=== PATIENT | female | born 1990 | race African-American/Black ===

== ENCOUNTER 2018-06-16 15:32 | Emergency (ER) | payer SELFPAY ==
[~2018-06-16] VITALS: Ht 167.6 cm; Wt 68.0 kg
[2018-06-16 16:03] VITALS: BP 141/82
--- NOTE | 2018-06-16 16:07 | Emergency Room Report ---
History of Present Illness General Chief Complaint: Pain Source: Patient Present Illness HPI 27-year-old female presents to the emergency department complaining of 8 out of 10 in severity pain to the left side of her chest upon palpation. Patient denies pain during that she reports recent history of URI for which she had cough, sore throat as well as left ear pain and preauricular lymphadenopathy. Patient states that the swelling has gone down in front of her ear however she would like her ear to be checked out. Patient denies fevers or chills she denies recent travel she does state that she has been around several ill contacts. Aggravating or relieving factors. Pt. denies recent travel, taking estrogen medications, claudication or recent surgery/immobilizations. Pt. reports that at work she does a lot of pushing and pulling type motions repetitively. Denies cardiac hx, hx of asthma, or smoking hx. Pt. reports hx of acid reflux and states her acid has been very active lately, does not have Meds at home. Allergies: Coded Allergies: No Known Allergies (Unverified , 06/16/18) Patient History Past Medical History: see triage record Past Surgical History: none Pertinent Family History: none Last Menstrual Period: on period now Now: No Reviewed Nursing Documentation: PMH: Agreed; PSxH: Agreed Nursing Documentation-PMH Past Medical History: No Stated History Review of Systems All Other Systems: negative except mentioned in HPI Physical Exam Vital Signs Date Time Temp Pulse Resp B/P (MAP) Pulse Ox O2 Delivery O2 Flow Rate FiO2 06/16/18 15:48 97.9 102 16 141/82 100 Room Air Sp02 EP Interpretation: reviewed, normal General Appearance: well appearing, no apparent distress, alert, GCS 15, non- toxic Head: normocephalic, atraumatic Eyes: bilateral eye normal inspection, bilateral eye PERRL ENT: hearing grossly normal, normal voice Neck: full range of motion Respiratory: lungs clear, normal breath sounds, no respiratory distress, no accessory muscle use, no wheezing, speaking full sentences, other - mild ttp to very deep palpation of the left anterior chest along the sternum. no erythema no palpable masses. lungs CTA, no wheezing, no increased effort. Cardiovascular #1: regular rate, rhythm, no edema Gastrointestinal: normal bowel sounds, non tender, soft, non-distended, no guarding Rectal: deferred Genitourinary: normal inspection Musculoskeletal: back normal, gait/station normal, normal range of motion, non- tender Neurologic: alert, oriented x3, responsive, motor strength/tone normal, sensory intact, speech normal, grossly normal Psychiatric: judgement/insight normal Skin: normal color, no rash, warm/dry, well hydrated Lymphatic: no adenopathy Medical Decision Making PA Attestation Dr. Stroud is my supervising physician whom pt. management has been discussed with. Diagnostic Impression: Primary Impression: Nonspecific chest pain Additional Impression: Hx of gastroesophageal reflux (GERD) ER Course 27-year-old female presents to the emergency department complaining of 8 out of 10 in severity pain to the left side of her chest upon palpation. Patient denies pain during that she reports recent history of URI for which she had cough, sore throat as well as left ear pain and preauricular lymphadenopathy. Patient states that the swelling has gone down in front of her ear however she would like her ear to be checked out. Patient denies fevers or chills she denies recent travel she does state that she has been around several ill contacts. Aggravating or relieving factors. Pt. denies recent travel, taking estrogen medications, claudication or recent surgery/immobilizations. Pt. reports that at work she does a lot of pushing and pulling type motions repetitively. Denies cardiac hx, hx of asthma, or smoking hx. Pt. reports hx of acid reflux and states her acid has been very active lately, does not have Meds at home. Ddx considered but are not limited to SD, pneumonia, contusion, costochondritis , PE, ACS, Shoulder strain, Chest wall contusion. Cellulitis, endocarditis just to name a few. Vital signs: hr 102, remaining VS are WNL, pt. is afebrile H&PE are most consistent with nonspecific chest pain Most likely muscle strain secondary to recent URI. Cardiac etiology is very low suspicion given patient' s presentation, character of her pain and no BX history. I do not suspect PE at this time given patient's presentation, description of her symptoms, and maintaining normal oxygen on room air. ORDERS: - EK NSR ED INTERVENTIONS: - Pt. declines Tylenol and Pepcid. DISCHARGE: At this time pt. is stable for d/c to home. Will provide printed patient care instructions, and any necessary prescriptions. Care plan and follow up instructions have been discussed with the patient prior to discharge. EKG Diagnostic Results EP Interpretation: Dr. Stroud Rate: normal - 96 Rhythm: NSR ST Segments: no acute changes ASA given to the pt in ED: No PA Scribe Text This Interpretation was scribed by PHONG Hurd. Last Vital Signs Date Time Temp Pulse Resp B/P (MAP) Pulse Ox O2 Delivery O2 Flow Rate FiO2 06/16/18 16:03 97.9 102 16 141/82 100 Room Air Disposition: HOME, SELF-CARE Condition: Stable Scripts Omeprazole (OMEPRAZOLE) 40 Mg Capsule. 40 MG ORAL DAILY for 14 Days, #14 CAP Prov: Amanda Hurd 06/16/18 Acetaminophen (Tylenol) 325 Mg Tablet 650 MG ORAL Q6H, #30 TAB 0 Refills Prov: Amanda Hurd 06/16/18 Departure Forms: Return to Work Return to Work Date: Jun 17, 2018 Work Restrictions: No Heavy Lifting Other Restrictions: no lifting or pulling x 3 days. Return to Full Activity: Jun 20, 2018 Patient Instructions: Food Choices for Gastroesophageal Reflux Disease, Adult, [id number], Nonspecific Chest Pain, [id number] Additional Instructions: Take medications as directed. Follow up with a Primary Care Provider in 3-5 days, even if your symptoms have resolved. --Please review list of primary care clinics, if you do not already have a primary care provider Return sooner to ED if new symptoms occur, or current symptoms become worse. - Please note that this Emergency Department Report was dictated using [employer] machine operator technology software, occasionally this can lead to erroneous entry secondary to interpretation by the dictation equipment. Amanda Hurd Jun 16, 2018 16:07
[2018-06-16] MEDS ORDERED: TYLENOL325 MG ORAL (16:25)
[2018-06-16] MEDS ORDERED: OMEPRAZOLE40 M1 ORAL (16:25)
[2018-06-16 16:36] VITALS: BP 136/79
--- NOTE | 2018-06-18 14:55 | Cardiology Report ---
APPROVED REPORT EKG Measurement Heart [id number] Normal sinus rhythm Possible Left atrial enlargement Borderline ECG
== END 2018-06-16 16:45 | disposition home or self-care (01) ==
LOC: EMR 16:39
DX: R07.9 Chest pain, unspecified (principal); K21.9 Gastro-esophageal reflux disease without esophagitis
CPT/HCPCS: 93005; 99283